=== PATIENT | female | born 1990 | race American Indian/Alaskan Native ===

== ENCOUNTER 2021-10-17 14:21 | Emergency (ER) | payer MEDICAID ==
[2021-10-17 14:25] VITALS: BP 141/81
--- NOTE | 2021-10-17 18:07 | Emergency Department Report ---
ED General Adult HPI - General Chief complaint: Anxiety Stated complaint: ANXIETY Time Seen by Provider: 10/17/21 17:54 Source: EMS Mode of arrival: Ambulatory Limitations: No Limitations - History of Present Illness Initial comments: 31-year-old -[place] female who is not fully vaccinated for Covid presents to the emergency room stating she is having intermittent shortness of breath loss of taste and smell nausea and vomiting the last 2 days. Patient states she has been having a hard time holding down food. She does report that she has anxiety and is currently not being treated. She is homeless at this time. And has no resources. Patient reports her last menstrual period was 09/19/2021 she is 2 para 0. She has not been recently tested for Covid. Reports that she has been living out of a hotel room. Onset/Timin -: days(s) Severity scale (0 -10): 3 Consistency: intermittent Improves with: none Worsens with: none Associated Symptoms: cough, nausea/vomiting, shortness of breath, other (Loss of taste and smell). denies: diaphoresis, fever/chills Treatments Prior to Arrival: none - Related Data Allergies Allergy/AdvReac Type Severity Reaction Status Date / Time Penicillins Allergy Intermediate Unknown Verified 10/17/21 18:04 ED Review of Systems ROS: Stated complaint: ANXIETY Other details as noted in HPI Comment: All other systems reviewed and negative ED Physical Exam - General Limitations: No Limitations General appearance: alert, in no apparent distress - Head Head exam: Present: atraumatic, normocephalic - Eye Eye exam: Present: normal appearance - ENT ENT exam: Present: mucous membranes moist - Neck Neck exam: Present: normal inspection - Respiratory Respiratory exam: Present: normal lung sounds bilaterally. Absent: respiratory distress, accessory muscle use - Cardiovascular Cardiovascular Exam: Present: regular rate, normal rhythm. Absent: systolic murmur, diastolic murmur, rubs, gallop - GI/Abdominal GI/Abdominal exam: Present: soft, normal bowel sounds. Absent: distended, tenderness - Extremities Exam Extremities exam: Present: normal inspection - Back Exam Back exam: Present: normal inspection - Neurological Exam Neurological exam: Present: alert, oriented X3 - Psychiatric Psychiatric exam: Present: normal affect, normal mood, depressed - Skin Skin exam: Present: warm, dry, intact, normal color. Absent: rash ED Course Vital Signs 10/17/21 14:23 Temperature 98.6 F Pulse Rate 81 Respiratory 18 Rate Blood Pressure 141/81 [Left] O2 Sat by Pulse 100 Oximetry ED Medical Decision Making - Medical Decision Making 31-year-old -[place] female who is not fully vaccinated for Covid presents to the emergency room stating she is having intermittent shortness of breath loss of taste and smell nausea and vomiting the last 2 days. Patient states she has been having a hard time holding down food. She does report that she has anxiety and is currently not being treated. She is homeless at this time. And has no resources. Patient reports her last menstrual period was 09/19/2021 she is 2 para 0. She has not been recently tested for Covid. Reports that she has been living out of a hotel room. Patient has been here for the last 3 hours without any nausea and vomiting. We will try a p.o. challenge. If patient is able to hold down food will discharge and have her get Covid tested. Discussed with patient she can get [id number] cough medication. Her vital signs are stable she is nontoxic in appearance and in no acute distress. Critical care attestation.: If time is entered above; I have spent that time in minutes in the direct care of this critically ill patient, excluding procedure time. ED Disposition Clinical Impression: Suspected COVID-19 virus infection, Homelessness, Anxiety Is pt being admited?: No Does the pt Need Aspirin: No Condition: Stable Instructions: Managing Anxiety, Adult, COVID-19 Frequently Asked Questions, COVID-19: How to Protect Yourself and Others - CDC, Prevent the Spread of COVID- 19 if You Are Sick - CDC Additional Instructions: Increase your fluids advance your diet as tolerated Tylenol ibuprofen as needed for pain. You can take Benadryl at night to help with anxiety. Your symptoms appear most consistent with a nonspecific viral syndrome. However, given this current pandemic, COVID-19 is in the differential of possibilities. Despite your previous negative COVID-19 test, I do recommend repeat outpatient Covid 19 testing. In the meantime, isolate/quarantine yourself and stay away from anyone who is elderly, immunocompromised or chronically ill. You can use ibuprofen every 6-8 hours and Tylenol every 4-8 hours, using the dosing on the back of the bottle, as needed for any fever or body aches. Return to the emergency department with any worsening of your symptoms, development of chest pain or shortness of breath, or with any acute distress. Referrals: [facility] [Provider Group] - 3-5 Days Forms: Work/School Release Form(ED) Time of Disposition: 18:09
[2021-10-17] MEDS ORDERED: ONDANSETRON 4 MG/2 ML INJ IM ONE (18:20)
[2021-10-17] MEDS ORDERED: SODIUM CHLORIDE 0.9% 1000 ML 1,000 ML IV ONE (19:54)
[2021-10-17] MEDS ORDERED: ONDANSETRON 4 MG/2 ML INJ IV ONE (19:54)
[2021-10-17 20:19] LABS: Basophils % (Auto) 0.5 % (0.0-1.8); Eosinophils % (Auto) 0.8 % (0.0-4.3); Hematocrit 35.5 % (30.3-42.9); Lymphocytes # (Auto) 1.9 K/mm3 (1.2-5.4); Lymphocytes % (Auto) 36.9 % (13.4-35.0); Mean Corpuscular HGB Conc 31 % (30-34); Mean Corpuscular Volume 70 fl (79-97); Monocytes # (Auto) 0.4 K/mm3 (0.0-0.8); Monocytes % (Auto) 8.6 % (0.0-7.3); Platelet Count 260 K/mm3 (140-440); Red Blood Count 5.04 M/mm3 (3.65-5.03); Red Cell Distribution Width 14.9 % (13.2-15.2)
--- NOTE | 2021-10-17 20:38 | XRay Report ---
CHEST 2 VIEWS INDICATION / CLINICAL INFORMATION: sob, cough. COMPARISON: None available. FINDINGS: SUPPORT DEVICES: None. HEART / MEDIASTINUM: No significant abnormality. LUNGS / PLEURA: No significant pulmonary or pleural abnormality. No pneumothorax. ADDITIONAL FINDINGS: No significant additional findings. IMPRESSION: 1. No acute findings. Signer Name: Aneudy Matthews MD Signed: 10/17/2021 8:34 PM Workstation Name: [id number]
[2021-10-17 20:40] LABS: Alanine Aminotransferase 27 units/L (7-56); Albumin 4.1 g/dL (3.9-5); Blood Urea Nitrogen 5 mg/dL (7-17); Calcium 9.1 mg/dL (8.4-10.2); Hemolysis Index 0
[2021-10-17 20:43] LABS: BUN/Creatinine Ratio 10
[2021-10-17] MEDS ORDERED: MORPHINE 4 MG/1 ML INJ IV ONE (22:17)
[2021-10-17] MEDS ORDERED: FAMOTIDINE 20 MG/2 ML INJ IV ONE (22:17)
[2021-10-17] MEDS ORDERED: PROCHLORPERAZINE EDISYLATE 10 MG/2 ML VIAL IV ONE (22:18)
[2021-10-18 01:07] LABS: Bacteria,Urine 4+ /HPF (Negative); Bilirubin,Urine NEG (Negative); Blood,Urine NEG (Negative); Color,Urine Yellow (Yellow); Mucus,Urine 3+ /HPF; Protein,Urine <15 mg/dL mg/dL (Negative); Urobilinogen,Urine < 2.0 mg/dL (<2.0)
[2021-10-18] MEDS ORDERED: cefTRIAXone/NS 1 GM/50 ML 1 GM/50 ML BAG IV ONE (01:55)
[2021-10-18] MEDS ORDERED: diphenhydrAMINE 50 MG/ML VIAL IV ONE (01:56)
--- NOTE | 2021-10-18 02:18 | Cat Scan Report ---
CT abdomen pelvis w con INDICATION / CLINICAL INFORMATION: Pt complains of "Generalized" abdominal pain: r/o SBO. TECHNIQUE: Axial CT imaging of abdomen and pelvis was obtained with IV contrast. (Omnipaque 300-100 cc) Coronal and sagittal reformatted imaging obtained and reviewed. All CT scans at this location are performed using CT dose reduction for ALARA by means of automated exposure control. COMPARISON: None available. FINDINGS: CT abdomen with contrast demonstrates grossly normal appearance of the liver, spleen, pancreas, kidne ys, and adrenal glands. Gallbladder is present. No biliary dilatation. Abdominal aorta is unremarkabl e. CT pelvis with contrast demonstrates normal appearance of the appendix. There is a 2.4 cm cyst within the right ovary. There is a hyperdense enhancing mass arising from the anterior aspect of the uterus measuring 2.7 cm. This is more than likely a uterine fibroid. No free fluid. No additional abnormal finding within the pelvis. GI tract is unremarkable. No evidence of bowel obstruction. Visualized lung bases are clear. No significant acute osseous abnormality. IMPRESSION: 1. There is a 2.4 cm right ovarian cyst without associated free fluid. 2. There is a 2.7 cm hyperdense mass in the anterior aspect of the uterus, most likely uterine fibroi d. 3. No other significant finding within the abdomen or pelvis. Signer Name: Tiana Kinsey MD Signed: 10/18/2021 2:14 AM Workstation Name: [id number]
--- NOTE | 2021-10-18 03:04 | Emergency Department Report ---
ED N/V/D HPI - General Chief complaint: Anxiety Stated complaint: ANXIETY Time Seen by Provider: 10/17/21 17:54 Source: EMS Mode of arrival: Ambulatory Limitations: No Limitations - History of Present Illness Initial comments: Patient is a 31-year-old -[place] female with a history of anxiety and depression who presented to the ED with complaint of acute onset persistent nausea and vomiting, diffuse abdominal pain and lack of appetite with gen eralized weakness for the last 1 week, worse in the last 2 days. Patient states that she has not been able to keep anything down in the last 3 days. Patient denies dizziness, syncope, chest pain or shortness of breath, cough, sore throat, dysuria, urinary frequency and urgency, vaginal bleeding, vaginal discharge, diarrhea, low back pain, fever and chills, headache or seizures. MD complaint: nausea, vomiting, abdominal pain -: Sudden, week(s) (1) Description of Vomiting: food contents, watery Associated Abdominal Pain: Yes (Diffuse abdominal pain) Location: diffuse Radiation: none Severity: severe Pain Scale: 7 Quality: cramping, aching, sharp Consistency: constant Improves with: none Worsens with: none Associated Symptoms: denies other symptoms, myalgias, cough, fever/chills, headaches, loss of appetite, malaise, nausea/vomiting, weakness. denies: diaphoresis, rash, dysuria, shortness of breath, syncope, other - Related Data Previous Rx's Medication Instructions Recorded Last Taken Type Famotidine [Pepcid] 20 mg PO BID #60 tablet 10/18/21 Unknown Rx Ibuprofen [Motrin] 800 mg PO Q8HR PRN #30 tablet 10/18/21 Unknown Rx Ondansetron [Zofran Odt] 4 mg PO Q6HR PRN #20 tab.rapdis 10/18/21 Unknown Rx Sulfamethoxazole/Trimethoprim 1 each PO Q12H #20 tablet 10/18/21 Unknown Rx [Bactrim DS TAB] Allergies Allergy/AdvReac Type Severity Reaction Status Date / Time Penicillins Allergy Intermediate Unknown Verified 10/17/21 18:04 ED Review of Systems ROS: Stated complaint: ANXIETY Other details as noted in HPI Constitutional: denies: chills, fever Eyes: denies: eye pain, eye discharge, vision change ENT: denies: ear pain, throat pain Respiratory: denies: cough, shortness of breath, wheezing Cardiovascular: denies: chest pain, palpitations Endocrine: no symptoms reported Gastrointestinal: abdominal pain, nausea, vomiting. denies: diarrhea Genitourinary: denies: urgency, dysuria, discharge Musculoskeletal: denies: back pain, joint swelling, arthralgia Skin: denies: rash, lesions Neurological: denies: headache, weakness, paresthesias Psychiatric: denies: anxiety, depression Hematological/Lymphatic: denies: easy bleeding, easy bruising ED Past Medical Hx - Past Medical History Previous Medical History?: Yes Hx Psychiatric Treatment: Yes (Anxiety and depression) - Medications Home Medications: Home Medications Medication Instructions Recorded Confirmed Last Taken Type Famotidine [Pepcid] 20 mg PO BID #60 tablet 10/18/21 Unknown Rx Ibuprofen [Motrin] 800 mg PO Q8HR PRN #30 tablet 10/18/21 Unknown Rx Ondansetron [Zofran Odt] 4 mg PO Q6HR PRN #20 tab.rapdis 10/18/21 Unknown Rx Sulfamethoxazole/Trimethoprim 1 each PO Q12H #20 tablet 10/18/21 Unknown Rx [Bactrim DS TAB] ED Physical Exam - General Limitations: No Limitations General appearance: alert, in no apparent distress - Head Head exam: Present: atraumatic, normocephalic, normal inspection - Eye Eye exam: Present: normal appearance, PERRL, EOMI Pupils: Present: normal accommodation - ENT ENT exam: Present: normal exam, normal orophraynx, mucous membranes moist, TM's normal bilaterally, normal external ear exam - Neck Neck exam: Present: normal inspection, full ROM - Respiratory Respiratory exam: Present: normal lung sounds bilaterally. Absent: respiratory distress, wheezes, rales, rhonchi, chest wall tenderness, accessory muscle use, decreased breath sounds, prolonged expiratory - Cardiovascular Cardiovascular Exam: Present: regular rate, normal rhythm, normal heart sounds. Absent: systolic murmur, diastolic murmur, rubs, gallop - GI/Abdominal GI/Abdominal exam: Present: soft, tenderness (Palpable diffuse abdominal tenderness), normal bowel sounds. Absent: guarding, rebound, hyperactive bowel sounds, hypoactive bowel sounds, organomegaly, mass - Extremities Exam Extremities exam: Present: normal inspection, full ROM, normal capillary refill - Back Exam Back exam: Present: normal inspection, full ROM. Absent: tenderness, CVA tenderness (R), CVA tenderness (L), muscle spasm, vertebral tenderness - Neurological Exam Neurological exam: Present: alert, oriented X3, CN II-XII intact, normal gait, reflexes normal - Psychiatric Psychiatric exam: Present: normal affect, normal mood, anxious - Skin Skin exam: Present: warm, dry, intact, normal color. Absent: rash ED Course Vital Signs 10/17/21 14:23 Temperature 98.6 F Pulse Rate 81 Respiratory 18 Rate Blood Pressure 141/81 [Left] O2 Sat by Pulse 100 Oximetry ED Medical Decision Making - Lab Data Result diagrams: 10/17/21 20:03 10/17/21 20:03 - Radiology Data Radiology results: report reviewed, [place] [address] Cat Scan Report Signed Patient: YVES PATRICK MR#: [id number] : 1990 Acct:[id number] Age/Sex: 31 / F ADM Date: 10/17/21 Loc: ED Attending Dr: Ordering Physician: LUIZ BLACKWELL Date of Service: 10/17/21 Procedure(s): CT abdomen pelvis w con Accession Number(s): [id number] cc: LUIZ BLACKWELL CT abdomen pelvis w con INDICATION / CLINICAL INFORMATION: Pt complains of "Generalized" abdominal pain: r/o SBO. TECHNIQUE: Axial CT imaging of abdomen and pelvis was obtained with IV contrast. (Omnipaque 300-100 cc) Coronal and sagittal reformatted imaging obtained and reviewed. All CT scans at this location are performed using CT dose reduction for ALARA by means of automated exposure control. COMPARISON: None available. FINDINGS: CT abdomen with contrast demonstrates grossly normal appearance of the liver, spleen, pancreas, kidneys, and adrenal glands. Gallbladder is present. No biliary dilatation. Abdominal aorta is unremarkable. CT pelvis with contrast demonstrates normal appearance of the appendix. There is a 2.4 cm cyst within the right ovary. There is a hyperdense enhancing mass arising from the anterior aspect of the uterus measuring 2.7 cm. This is more than likely a uterine fibroid. No free fluid. No additional abnormal finding within the pelvis. GI tract is unremarkable. No evidence of bowel obstruction. Visualized lung bases are clear. No significant acute osseous abnormality. IMPRESSION: 1. There is a 2.4 cm right ovarian cyst without associated free fluid. 2. There is a 2.7 cm hyperdense mass in the anterior aspect of the uterus, most likely uterine fibroid. 3. No other significant finding within the abdomen or pelvis. Signer Name: Tiana Kinsey MD Signed: 10/18/2021 2:14 AM Workstation Name: [id number] Transcribed By: JR Dictated By: Tiana Kinsey MD Electronically Authenticated By: Tiana Kinsey MD Signed Date/Time: 10/18/21213 DD/ 7 TD/TT: Print [facility] [address] [place] [address] XRay Report Signed Patient: YVES PATRICK MR#: [id number] : 1990 Acct:[id number] Age/Sex: 31 / F ADM Date: 10/17/21 Loc: ED Attending Dr: Ordering Physician: LUIZ GAGNON Date of Service: 10/17/21 Procedure(s): XR chest routine 2V Accession Number(s): [id number] cc: LUIZ GAGNON Fluoro Time In Minutes: CHEST 2 VIEWS INDICATION / CLINICAL INFORMATION: sob, cough. COMPARISON: None available. FINDINGS: SUPPORT DEVICES: None. HEART / MEDIASTINUM: No significant abnormality. LUNGS / PLEURA: No significant pulmonary or pleural abnormality. No pneumothorax. ADDITIONAL FINDINGS: No significant additional findings. IMPRESSION: 1. No acute findings. Signer Name: Aneudy Matthews MD Signed: 10/17/2021 8:34 PM Workstation Name: [id number] Transcribed By: CATRACHITO Dictated By: Aneudy Matthews MD Electronically Authenticated By: Aneudy Matthews MD Signed Date/Time: 10/17/212033 DD/ 33 TD/TT: - Medical Decision Making This is a 31-year-old -[place] female with a history of anxiety and depression who presented to the ED with complaint of acute onset persistent nausea and vomiting, diffuse abdominal pain and lack of appetite with gen eralized weakness for the last 1 week, worse in the last 2 days. Patient states that she has not been able to keep anything down in the last 3 days. In the ED, patient is alert and oriented x3 and is not in any distress. Patient was treated for nausea and vomiting and was given pain medications and antacids. Patient also received normal saline 1 L IV bolus x1. Chest x-ray showed no acute cardiopulmonary abnormalities or pneumonitis. Abdomen pelvis CT scan with contrast showed a 2.4 cm right ovarian cyst without associated free fluid. It also showed a 2.7 cm hyperdense mass in the anterior aspect of the uterus, most likely uterine fibroid, otherwise no other significant finding within the abdomen or pelvis. On reevaluation, patient's pain is well controlled medication. Patient also has not had any nausea and vomiting after being treated in the ED with antiemetics. Lab test results are all nonactionable except for significant urinary tract infection in urinalysis. Patient also received Rocephin 1 g IV x1. Patient was therefore discharged home on antiemetics, antibiotics as well as pain medications and advised to follow-up with her primary care physician in 7 to 10 days for reevaluation or return to the ED immediately if symptoms get worse. - Differential Diagnosis UTI; constipation; appendicitis; ovarian cyst; colitis; gastroenteritis Critical care attestation.: If time is entered above; I have spent that time in minutes in the direct care of this critically ill patient, excluding procedure time. ED Disposition Clinical Impression: Nausea and vomiting in adult patient, Acute urinary tract infection Abdominal pain Qualifiers: Abdominal location: generalized Qualified Code(s): R10.84 - Generalized abdominal pain Disposition: HOME / SELF CARE / HOMELESS Is pt being admited?: No Does the pt Need Aspirin: No Condition: Stable Instructions: Nausea and Vomiting, Adult, [id number], Urinary Tract Infection, Adult, [id number], Abdominal Pain, Adult, [id number] Additional Instructions: Increase your fluids advance your diet as tolerated Tylenol ibuprofen as needed for pain. You can take Benadryl at night to help with anxiety. Your symptoms appear most consistent with a nonspecific viral syndrome. However, given this current pandemic, COVID-19 is in the differential of possibilities. Despite your previous negative COVID-19 test, I do recommend repeat outpatient Covid 19 testing. In the meantime, isolate/quarantine your self and stay away from anyone who is elderly, immunocompromised or chronically ill. You can use ibuprofen every 6-8 hours and Tylenol every 4-8 hours, using the dosing on the back of the bottle, as needed for any fever or body aches. Return to the emergency department with any worsening of your symptoms, development of chest pain or shortness of breath, or with any acute distress. Prescriptions: Sulfamethoxazole/Trimethoprim [Bactrim DS TAB] 1 each PO Q12H #20 tablet Ibuprofen [Motrin] 800 mg PO Q8HR PRN #30 tablet PRN Reason: Pain , Severe (7-10) Famotidine [Pepcid] 20 mg PO BID #60 tablet Ondansetron [Zofran Odt] 4 mg PO Q6HR PRN #20 tab.rapdis PRN Reason: Nausea Referrals: [facility] [Provider Group] - 3-5 Days Forms: Work/School Release Form(ED) Time of Disposition: 03:06 Print Language: CHILEAN
== END 2021-10-18 04:35 | disposition home or self-care (01) ==
LOC: ED 14:21
DX: R11.2 Nausea with vomiting, unspecified (principal); R10.84 Generalized abdominal pain; Z88.0 Allergy status to penicillin
CPT/HCPCS: 36415; 71046; 74177; 80053; 81001; 83690; 84703; 85025; 87076; 87086; 87186; 96361; 96365; 96372; 96375; 99285; J0696; J0780; J1200; J2270; J2405; J3490; J7030; Q9967; Q0162